=== PATIENT | male | born 1970 | race Caucasian/White ===

== ENCOUNTER 2018-02-08 14:53 | Emergency (ER) | payer BC, OTHER ==
--- NOTE | 2018-02-08 17:05 | RAD REPORT ---
EXAM DESCRIPTION: US - Extremity Nonvascular Limited - 02/08/2018 4:33 pm CLINICAL HISTORY: Pain, abscess COMPARISON: No comparisons TECHNIQUE: Real-time sonographic evaluation of the area of interest was performed. FINDINGS: In the anterior left shoulder region of interest skin thickening subcutaneous edema is pre sent. A focal fluid-like collection is present in the region measuring 16 x 14 mm. This may represent an abscess or bursitis.
[2018-02-08] MEDS ORDERED: LIDOCAINE 1% MPF 2 ML AMPULE ONE (18:19)
--- NOTE | 2018-02-08 18:45 | ER ---
Nurse's Notes [facility] Name: Ivan Dey Age: 47 yrs Sex: Male : 1970 Arrival Date: 02/08/2018 Time: 15:00 Bed 13 Private MD: Diagnosis: Cutaneous abscess of left upper limb Presentation: 02/08 15:01 Presenting complaint: Patient states: Swelling and pain to left deltoid after using aj anabolic steroids 1 week ago. Transition of care: patient was not received from another setting of care. Onset of symptoms was February 01, 2018. Risk Assessment: Do you want to hurt yourself or someone else? Patient reports no desire to harm self or others. Initial Sepsis Screen: Does the patient meet any 2 criteria? No. Patient's initial sepsis screen is negative. Does the patient have a suspected source of infection? No. Patient's initial sepsis screen is negative. Care prior to arrival: None. 15:01 Method Of Arrival: Ambulatory aj 15:01 Acuity: DARIUSZ 4 aj Triage Assessment: 15:03 General: Appears in no apparent distress. comfortable, Behavior is calm, cooperative, aj appropriate for age. Pain: Complains of pain in anterior aspect of left shoulder. Neuro: Level of Consciousness is awake, alert, obeys commands, Oriented to person, place, time, situation, Appropriate for age. Respiratory: Airway is patent Respiratory effort is even, unlabored, Respiratory pattern is regular, symmetrical. Derm: Skin is intact, is healthy with good turgor, Skin is pink, warm \T\ dry. normal. Musculoskeletal: Circulation, motion, and sensation intact. Range of motion: Reports pain in anterior aspect of left shoulder. 19:00 Injury Description: abscess. tl3 Historical: - Allergies: 15:03 No Known Allergies; aj - Home Meds: 15:03 None [Active]; aj - PMHx: 15:03 None; aj - PSHx: 15:03 None; aj - Immunization history:: Adult Immunizations up to date. - Social history:: Smoking status: Patient/guardian denies using tobacco, Patient uses alcohol, weekly. street drugs, Anabolic Steroids. - Ebola Screening: : Patient negative for fever greater than or equal to 101.5 degrees Fahrenheit, and additional compatible Ebola Virus Disease symptoms Patient denies exposure to infectious person Patient denies travel to an Ebola-affected area in the 21 days before illness onset No symptoms or risks identified at this time. Screenin:12 Abuse screen: Denies threats or abuse. Nutritional screening: No deficits noted. tl3 Tuberculosis screening: No symptoms or risk factors identified. Fall Risk None identified. Assessment: 17:07 General: Appears in no apparent distress. comfortable, well groomed, well developed, tl3 well nourished, Behavior is calm, cooperative, appropriate for age. Pain: Complains of pain in left deltoid Pain currently is 6 out of 10 on a pain scale. Pain began 2-3 days ago. Neuro: Level of Consciousness is awake, alert, obeys commands, Oriented to person, place, time, situation, Appropriate for age. Cardiovascular: Patient's skin is warm and dry. Respiratory: Airway is patent Respiratory effort is even, unlabored, Respiratory pattern is regular, symmetrical. GI: No signs and/or symptoms were reported involving the gastrointestinal system. : No signs and/or symptoms were reported regarding the genitourinary system. : No signs and/or symptoms were reported regarding the genitourinary system. EENT: No signs and/or symptoms were reported regarding the EENT system. Derm: No signs and/or symptoms reported regarding the dermatologic system. swelling to left deltoid, from steroid injection. 18:59 Reassessment: Patient appears in no apparent distress at this time. No changes from tl3 previously documented assessment. Patient and/or family updated on plan of care and expected duration. Pain level reassessed. Patient is alert, oriented x 3, equal unlabored respirations, skin warm/dry/pink. Vital Signs: 15:03 BP 144 / 96; Pulse 89; Resp 16; Temp 98.4; Pulse Ox 97% on R/A; Weight 90.72 kg; Height aj 5 ft. 10 in. (177.80 cm); 17:12 BP 131 / 87; Pulse 76; Resp 16; Pulse Ox 97% ; tl3 18:59 BP 135 / 85; Pulse 84; Resp 16; Pulse Ox 100% ; tl3 15:03 Body Mass Index 28.70 (90.72 kg, 177.80 cm) aj ED Course: 15:00 Patient arrived in ED. mr 15:02 Triage completed. aj 15:03 Arm band placed on right wrist. Patient placed Patient notified of wait time. aj 16:35 US Extrmty Nonvasular Limited In Process Unspecified. EDMS 16:58 Bharti Scott, RN is Primary Nurse. tl3 17:03 Niels Funes PA is PHCP. jr8 17:03 Valente Browne MD is Attending Physician. jr8 17:12 Patient has correct armband on for positive identification. Bed in low position. Pulse tl3 ox on. NIBP on. 17:12 No provider procedures requiring assistance completed. Patient did not have IV access tl3 during this emergency room visit. 18:44 Jake Hoffman MD is Referral Physician. jr8 Administered Medications: No medications were administered Outcome: 18:44 Discharge ordered by . jr8 18:59 Discharged to home ambulatory. tl3 18:59 Condition: good 18:59 Discharge instructions given to patient, Instructed on discharge instructions, follow up and referral plans. medication usage, Demonstrated understanding of instructions, follow-up care, medications, Prescriptions given X 1. 19:01 Patient left the ED. tl3 Signatures: Dispatcher [employer] EDMS Catalina Harris, Bárbara Frey RN mr Niels Funes PA PA jr8 Bharti Scott, RN RN tl3
--- NOTE | 2018-02-08 18:45 | EDPHYS ---
Physician Documentation [facility] Name: Ivan Dey Age: 47 yrs Sex: Male : 1970 Arrival Date: 02/08/2018 Time: 15:00 Bed 13 Private MD: ED Physician Valente Browne HPI: 02/08 20:01 This 47 yrs old Male presents to ER via Ambulatory with complaints of jr8 Shoulder Pain . 20:01 Onset: The symptoms/episode began/occurred gradually, 1 week(s) ago. Modifying factors: jr8 the symptoms are alleviated by nothing. The symptoms are aggravated by movement. Associated signs and symptoms: The patient has no apparent associated signs or symptoms. Severity of symptoms: At their worst the symptoms were moderate, in the emergency department the symptoms are unchanged. The patient has experienced a previous episode. The patient has not recently seen a physician. Patient stated that he uses testosterone twice a week and injects it in the shoulders or buttocks. Once before had an abscess from the injection. Started to swell in left deltoid region about 1 week ago. No has more swelling and increased pain. Worried he has another abscess . Historical: - Allergies: 15:03 No Known Allergies; aj - Home Meds: 15:03 None [Active]; aj - PMHx: 15:03 None; aj - PSHx: 15:03 None; aj - Immunization history:: Adult Immunizations up to date. - Social history:: Smoking status: Patient/guardian denies using tobacco, Patient uses alcohol, weekly. street drugs, Anabolic Steroids. - Ebola Screening: : Patient negative for fever greater than or equal to 101.5 degrees Fahrenheit, and additional compatible Ebola Virus Disease symptoms Patient denies exposure to infectious person Patient denies travel to an Ebola-affected area in the 21 days before illness onset No symptoms or risks identified at this time. ROS: 20:01 Eyes: Negative for injury, pain, redness, and discharge, ENT: Negative for injury, jr8 pain, and discharge, Neck: Negative for injury, pain, and swelling, Cardiovascular: Negative for chest pain, palpitations, and edema, Respiratory: Negative for shortness of breath, cough, wheezing, and pleuritic chest pain, Abdomen/GI: Negative for abdominal pain, nausea, vomiting, diarrhea, and constipation, Back: Negative for injury and pain, Skin: Negative for injury, rash, and discoloration, Neuro: Negative for headache, weakness, numbness, tingling, and seizure. 20:01 MS/extremity: Positive for pain, swelling, tenderness, of the anterior aspect of left shoulder. Exam: 20:01 Cardiovascular: Regular rate and rhythm with a normal S1 and S2. No gallops, murmurs, jr8 or rubs. Normal PMI, no JVD. No pulse deficits. Respiratory: Lungs have equal breath sounds bilaterally, clear to auscultation and percussion. No rales, rhonchi or wheezes noted. No increased work of breathing, no retractions or nasal flaring. MS/ Extremity: Pulses equal, no cyanosis. Neurovascular intact. Full, normal range of motion. Neuro: Awake and alert, GCS 15, oriented to person, place, time, and situation. Cranial nerves II-XII grossly intact. Motor strength 5/5 in all extremities. Sensory grossly intact. Cerebellar exam normal. Normal gait. 20:01 Skin: Patient has approximately 3 cm by 5 cm swollen fluctuant region to left deltoid. No surrounding cellulitis/erythema noted . Vital Signs: 15:03 BP 144 / 96; Pulse 89; Resp 16; Temp 98.4; Pulse Ox 97% on R/A; Weight 90.72 kg; Height aj 5 ft. 10 in. (177.80 cm); 17:12 BP 131 / 87; Pulse 76; Resp 16; Pulse Ox 97% ; tl3 18:59 BP 135 / 85; Pulse 84; Resp 16; Pulse Ox 100% ; tl3 15:03 Body Mass Index 28.70 (90.72 kg, 177.80 cm) Procedures: 18:41 I \T\ D: Incision and drainage was performed for an abscess of the left deltoid Prepped jr8 with alcohol, Anesthetized with 3 ml's 1% Lidocaine. Incised with 18 G needle to aspirate exudate . Drained moderate amount purulent fluid. bloody fluid. Cultures obtained. approximately 8 ml of exudate aspirated . MDM: 17:31 Patient medically screened. 8 18:41 Data reviewed: vital signs, nurses notes, radiologic studies, ultrasound, and as a 8 result, I will discharge patient. Data interpreted: Pulse oximetry: on room air is 97 %. Interpretation: normal. Counseling: I had a detailed discussion with the patient and/or guardian regarding: the historical points, exam findings, and any diagnostic results supporting the discharge/admit diagnosis, radiology results, the need for outpatient follow up, a general surgeon, to return to the emergency department if symptoms worsen or persist or if there are any questions or concerns that arise at home. 02/08 18:25 Order name: Wound Culture tl3 02/08 15:12 Order name: US Extrmty Nonvasular Limited; Complete Time: 17:53 snw Administered Medications: No medications were administered Disposition: 02/09 07:17 Co-signature as Attending Physician, Valente Browne MD I agree with the assessment and kdr plan of care. Disposition: 02/08/18 18:44 Discharged to Home. Impression: Cutaneous abscess of left upper limb. - Condition is Stable. - Discharge Instructions: Skin Abscess, Incision and Drainage. - Prescriptions for Bactrim DS 800- 160 mg Oral Tablet - take 1 tablet by ORAL route every 12 hours for 10 days; 20 tablet. - Medication Reconciliation Form, Thank You Letter, Antibiotic Education, Prescription Opioid Use form. - Follow up: Jake Hoffman MD; When: 1 - 2 days; Reason: Recheck today's complaints, Continuance of care, Re-evaluation by your physician. - Problem is new. - Symptoms have improved. Signatures: Dispatcher [employer] EDCatalina Loera, RN RN Valente Poon MD MD [facility] Niels Funes PA PA jr8 Bharti Scott RN RN tl3 Corrections: (The following items were deleted from the chart) 02/08 19:01 18:44 02/08/2018 18:44 Discharged to Home. Impression: Cutaneous abscess of left upper tl3 limb. Condition is Stable. Forms are Medication Reconciliation Form, Thank You Letter, Antibiotic Education, Prescription Opioid Use. Follow up: Jake Hoffman; When: 1 - 2 days; Reason: Recheck today's complaints, Continuance of care, Re-evaluation by your physician. Problem is new. Symptoms have improved. jr8
== END 2018-02-08 19:01 | disposition home or self-care (01) ==
LOC: ER 14:53
PROC: 0J9F0ZZ Drainage of Left Upper Arm Subcutaneous Tissue and Fascia, Open Approach (ICD-10-PCS; principal; 2018-02-08)
DX: L02.414 Cutaneous abscess of left upper limb (principal)
CPT/HCPCS: 10060; 76882; 87070; 87205; 99283; J2001